=== PATIENT | male | born 1940 | race Two or more races ===

== ENCOUNTER 2024-09-05 18:34 | Inpatient (IN) | payer MEDICARE ==
[~2024-09-05] VITALS: Ht 170.2 cm; Wt 83.9 kg
[2024-09-05] MEDS ORDERED: ALLO100T56 PO (18:56)
[2024-09-05] MEDS ORDERED: INSU100V SUBCUT (18:56)
[2024-09-05] MEDS ORDERED: LEVO75TA PO (18:56)
[2024-09-05] MEDS ORDERED: CLON0.1T PO (18:56)
[2024-09-05] MEDS ORDERED: CEPH500T PO (18:56)
[2024-09-05] MEDS ORDERED: TICA90TA PO (18:56)
[2024-09-05] MEDS ORDERED: FAMO20TA8 PO (18:56)
[2024-09-05] MEDS ORDERED: TRAZ-182 PO (18:56)
[2024-09-05] MEDS ORDERED: CARV3.122 PO (18:56)
[2024-09-05 19:33] LABS: BASOPHILS # (AUTO) 0.1 K/UL (0.0-0.2); BASOPHILS % (AUTO) 0.6 % (0.0-2.0); EOSINOPHILS # (AUTO) 0.1 K/uL (0.0-0.7); EOSINOPHILS % (AUTO) 1.1 % (0.0-7.0); HEMOGLOBIN 10.2 g/dL (12.5-16.3); LYMPHOCYTES # (AUTO) 1.3 K/uL (0.8-4.8); LYMPHOCYTES % (AUTO) 11.2 % (20.5-51.5); MEAN CORPUSCULAR HGB CONC 33 g/dL (32.5-36.3); MEAN CORPUSCULAR VOLUME 85.1 fL (73.0-96.2); MONOCYTES # (AUTO) 0.4 K/uL (0.1-1.30); MONOCYTES % (AUTO) 3.5 % (0.0-11.0); NEUTROPHILS % (AUTO) 83.6 % (38.5-71.5); PLATELET COUNT (AUTO) 296 K/uL (152-348); RED BLOOD CELL COUNT(AUTO) 3.64 MIL/uL (4.06-5.63); RED CELL DISTRIBUTION WIDTH 17.1 % (12.1-16.2); WHITE BLOOD COUNT (AUTO) 11.9 K/uL (3.6-10.2)
[2024-09-05 19:37] LABS: DIFFERENTIAL COMMENT 1
[2024-09-05] MEDS ORDERED: GLUCAGON,HUMAN RECOMBINANT 1 MG VIAL ONE ×2 (19:38→19:58)
[2024-09-05 19:42] LABS: AMMONIA 14 umol/L (11-32)
[2024-09-05 19:46] LABS: ALANINE AMINOTRANSFERASE 29 U/L (16-63); ALBUMIN 3.7 g/dL (3.4-5.0); ALKALINE PHOSPHATASE 124 U/L (50-136); ASPARTATE AMINOTRANSFERASE 19 U/L (15-37); BILIRUBIN,DIRECT 0.1 mg/dL (0.0-0.2); BILIRUBIN,TOTAL 0.3 mg/dL (0.2-1.0); CALCIUM 8.5 mg/dL (8.5-10.1); CARBON DIOXIDE 20 mmol/L (21-32); CHLORIDE 106 mmol/L (98-107); CREATININE 2.4 mg/dL (0.6-1.3); POTASSIUM 3.7 mmol/L (3.5-5.1); SODIUM SERUM 141 mmol/L (136-145); TOTAL PROTEIN, SERUM 7.4 g/dL (6.4-8.2); UREA NITROGEN, BLOOD 61 mg/dL (7-18)
[2024-09-05 19:48] LABS: GLUCOSE 42 mg/dL (74-106)
[2024-09-05] MEDS ORDERED: DEXTROSE 50% 50 ML DISP.SYRIN ONE ×3 (19:48→22:38)
[2024-09-05] MEDS: DEXTROSE 50% 50 ML DISP.SYRIN IV ONE ×2 (19:51→22:54)
[2024-09-05 19:58] LABS: ETHANOL < 3 MG/DL (0-10)
[2024-09-05] MEDS ORDERED: IV DEXTROSE 5%-0.9%NS+20MeqKCL 1,000 ML IV ONE (20:01)
[2024-09-05] MEDS: POTASSIUM CHLORIDE 20 MEQ in IV D5/ 0.9% NACL 1,000 ML IV PRN (20:07)
[2024-09-05] MEDS: GLUCAGON,HUMAN RECOMBINANT 1 MG VIAL SQ STA (23:01)
[2024-09-05] MEDS ORDERED: CEFEPIME HCL 1 G VIAL ONE (23:07)
[2024-09-05] MEDS: CEFEPIME HCL 2 G in IV DEXTROSE 5% 100 ML IV ONE (23:07)
[2024-09-05 23:29] LABS: *BILIRUBIN,URIN NEGATIVE (NEGATIVE); *BLOOD, URINE 3+ (NEGATIVE); *CLARITY,URINE SLIGHTLY CLOUDY (CLEAR); *COLOR,URINE YELLOW (YELLOW); *KETONES,URINE NEGATIVE (NEGATIVE); *PROTEIN,URINE NEGATIVE (NEGATIVE); *UROBILINOGEN,URINE 0.2 E.U./dl (NORMAL); LEUKOCYTE ESTERASE ,URINE 2+ (NEGATIVE); NITRITE, URINE NEGATIVE (NEGATIVE); PH,URINE 5.5 (5.0-8.0); UGLUCOSE 2+ (NEGATIVE)
[2024-09-05 23:39] LABS: RBC,URINE 50-80 /HPF (0-3)
[2024-09-05 23:40] LABS: BACTERIA,URINE FEW /HPF (NONE SEEN); SQUAMOUS EPITHELIAL CELL,UR FEW /HPF (NONE SEEN); WBC,URINE 20-50 /HPF (0-3)
[2024-09-05 23:41] LABS: *AMPHETAMINE, URINE NEGATIVE (NEGATIVE); *BARBITURATE, URINE NEGATIVE (NEGATIVE); *BENZODIAZEPINE, URINE NEGATIVE (NEGATIVE); *CANNABINOID, URINE NEGATIVE (NEGATIVE); *COCCAINE, URINE NEGATIVE (NEGATIVE); *OPIATE, URINE NEGATIVE (NEGATIVE); *PHENCYCLIDINE SCREEN,URINE NEGATIVE (NEGATIVE); FENTANYL, URINE NEGATIVE (NEGATIVE)
[2024-09-05] MEDS: IV NS 1000 ML 1,000 ML IV ONE (23:58)
[2024-09-06] MEDS ORDERED: REMEDY ESSENTIAL ZINC PASTE 113 GM TP PRN (00:15)
[2024-09-06] MEDS ORDERED: ONDANSETRON 4 MG/2 ML VIAL IV PRN (00:15)
[2024-09-06] MEDS ORDERED: MAGNESIUM HYDROXIDE 30 ML LIQUID UDC PO PRN (00:15)
[2024-09-06] MEDS ORDERED: DEXTROSE 50% 50 ML DISP.SYRIN IV PRN ×2 (00:15→12:15)
[2024-09-06 02:30] VITALS: BP 147/62; TEMP 98.5; O2SAT 97
[2024-09-06] MEDS: BLOOD SUGAR DIAGNOSTIC 1 EACH STRIP VI SCH ×2 (03:49→13:56)
[2024-09-06] MEDS: IV D5 1/2 NS 1000 ML 1,000 ML IV PRN (03:51)
[2024-09-06 05:01] VITALS: BP 131/55; TEMP 98.2; O2SAT 97
[2024-09-06] MEDS: LEVOTHYROXINE SODIUM 75 MCG TABLET PO ONE (06:43)
[2024-09-06 07:01] LABS: CALCIUM 8.1 mg/dL (8.5-10.1); CARBON DIOXIDE 16 mmol/L (21-32); CHLORIDE 108 mmol/L (98-107); CREATININE 2.4 mg/dL (0.6-1.3); GLUCOSE 217 mg/dL (74-106); POTASSIUM 4.5 mmol/L (3.5-5.1); SODIUM SERUM 141 mmol/L (136-145); UREA NITROGEN, BLOOD 57 mg/dL (7-18)
[2024-09-06 08:00] VITALS: BP 139/62; TEMP 98.1; O2SAT 97
[2024-09-06] MEDS: ALLOPURINOL 100 MG TABLET PO SCH (08:28)
[2024-09-06] MEDS: CARVEDILOL 3.125 MG TABLET PO SCH (08:28)
[2024-09-06] MEDS: FAMOTIDINE 20 MG TABLET PO SCH (08:28)
[2024-09-06] MEDS ORDERED: CARVEDILOL 3.125 MG TABLET PO SCH (09:00)
[2024-09-06] MEDS ORDERED: LEVOTHYROXINE SODIUM 75 MCG TABLET PO SCH (09:00)
[2024-09-06] MEDS ORDERED: CEFEPIME HCL 1 G in IV DEXTROSE 5% 50 ML IV SCH (09:00)
[2024-09-06] MEDS ORDERED: DAPA10TA PO (10:22)
[2024-09-06] MEDS ORDERED: SIMV-46 PO (11:05)
[2024-09-06] MEDS ORDERED: CHOL-35 PO (11:05)
[2024-09-06 12:00] VITALS: BP 148/69; TEMP 98.1; O2SAT 99
[2024-09-06] MEDS: INSULIN REGULAR, HUMAN 1000 UNIT/10 ML VIAL SQ PRN (13:58)
[2024-09-06 16:00] VITALS: BP 151/62; TEMP 98.4; O2SAT 100
[2024-09-06 18:25] LABS: *CREATININE,URINE 51.2 mg/dL (30-125); *URINE TOTAL PROTEIN RANDOM 77.6 mg/dL (<150/24HR)
[2024-09-06 19:30] VITALS: BP 142/70; TEMP 98.5; O2SAT 98
[2024-09-06] MEDS: INSULIN GLARGINE,HUM 300 UNITS/3 ML CARTRIDGE SQ SCH (21:00)
[2024-09-06] MEDS: SIMVASTATIN 20 MG TABLET PO SCH (21:53)
[2024-09-06] MEDS: TRAZODONE 50 MG TABLET PO SCH (21:53)
[2024-09-06] MEDS ORDERED: CEFEPIME HCL 1 G VIAL ONE (22:15)
[2024-09-06] MEDS: CEFEPIME HCL 1 G in IV DEXTROSE 5% 50 ML IV SCH (22:50)
[2024-09-07 00:49] VITALS: BP 154/81; TEMP 98.1; O2SAT 100
[2024-09-07 06:18] VITALS: BP 138/59; TEMP 97.6; O2SAT 97
[2024-09-07 06:28] LABS: BASOPHILS # (AUTO) 0.1 K/UL (0.0-0.2); BASOPHILS % (AUTO) 0.8 % (0.0-2.0); EOSINOPHILS # (AUTO) 0.2 K/uL (0.0-0.7); EOSINOPHILS % (AUTO) 1.8 % (0.0-7.0); HEMATOCRIT 28.6 % (36.7-47.1); HEMOGLOBIN 9.7 g/dL (12.5-16.3); LYMPHOCYTES # (AUTO) 1.8 K/uL (0.8-4.8); LYMPHOCYTES % (AUTO) 13.9 % (20.5-51.5); MEAN CORPUSCULAR HGB CONC 34 g/dL (32.5-36.3); MEAN CORPUSCULAR VOLUME 85.8 fL (73.0-96.2); MONOCYTES # (AUTO) 0.9 K/uL (0.1-1.30); MONOCYTES % (AUTO) 6.7 % (0.0-11.0); NEUTROPHILS # (AUTO) 9.8 K/uL (1.8-8.9); NEUTROPHILS % (AUTO) 76.8 % (38.5-71.5); PLATELET COUNT (AUTO) 287 K/uL (152-348); RED BLOOD CELL COUNT(AUTO) 3.34 MIL/uL (4.06-5.63); RED CELL DISTRIBUTION WIDTH 17.3 % (12.1-16.2); WHITE BLOOD COUNT (AUTO) 12.8 K/uL (3.6-10.2)
[2024-09-07 06:45] LABS: DIFFERENTIAL COMMENT 1
[2024-09-07 06:50] LABS: ALANINE AMINOTRANSFERASE 29 U/L (16-63); ALBUMIN 3.5 g/dL (3.4-5.0); ALKALINE PHOSPHATASE 117 U/L (50-136); ASPARTATE AMINOTRANSFERASE 23 U/L (15-37); BILIRUBIN,TOTAL 0.3 mg/dL (0.2-1.0); CALCIUM 8.2 mg/dL (8.5-10.1); CARBON DIOXIDE 18 mmol/L (21-32); CHLORIDE 110 mmol/L (98-107); CHOLESTEROL 124 mg/dL (<200); CREATININE 2.1 mg/dL (0.6-1.3); GLUCOSE 57 mg/dL (74-106); HDL CHOLESTEROL 62 mg/dL (40-60); MAGNESIUM 2.8 mg/dL (1.8-2.4); PHOSPHOROUS 3.6 mg/dL (2.5-4.9); POTASSIUM 4.2 mmol/L (3.5-5.1); SODIUM SERUM 137 mmol/L (136-145); TOTAL PROTEIN, SERUM 7.4 g/dL (6.4-8.2); TRIGLYCERIDES 71 MG/DL (30-150); UREA NITROGEN, BLOOD 44 mg/dL (7-18)
[2024-09-07 07:10] LABS: IRON, SERUM 26 ug/dL (50-175)
[2024-09-07 07:13] LABS: CREATINE KINASE, TOTAL 281 U/L (39-308)
[2024-09-07 07:32] VITALS: BP 150/65; TEMP 97.8; O2SAT 100
[2024-09-07] MEDS: DAPAGLIFLOZIN PROPANEDIOL 10 MG TABLET PO SCH (08:26)
[2024-09-07] MEDS: TICAGRELOR 90 MG TABLET PO SCH (08:26)
[2024-09-07] MEDS: CHOLECALCIFEROL 1,000 UNIT TABLET PO SCH (08:26)
[2024-09-07 11:32] VITALS: BP 150/69; TEMP 98.4; O2SAT 97
[2024-09-07] MEDS: ACETAMINOPHEN 325 MG TABLET PO PRN (15:18)
[2024-09-07] MEDS: IV 1/2NS 1000 ML 1,000 ML IV PRN (15:19)
[2024-09-07 15:55] VITALS: BP 105/75; TEMP 97.7; O2SAT 99
[2024-09-07] MEDS ORDERED: glipiZIDE 5 MG TABLET PO SCH (16:30)
[2024-09-07] MEDS: CARVEDILOL 3.125 MG TABLET PO SCH (17:16)
[2024-09-07 19:40] VITALS: BP 130/72; TEMP 97.8; O2SAT 100
[2024-09-07] MEDS: SIMVASTATIN 10 MG TABLET PO SCH (20:21)
[2024-09-08 00:08] VITALS: BP 110/60; TEMP 98.5; O2SAT 98
[2024-09-08 04:25] VITALS: BP 109/69; TEMP 97.9; O2SAT 97
[2024-09-08] MEDS: LEVOTHYROXINE SODIUM 75 MCG TABLET PO SCH (06:36)
[2024-09-08] MEDS: glipiZIDE 5 MG TABLET PO SCH (06:36)
[2024-09-08] MEDS: PANTOPRAZOLE SODIUM 40 MG TABLET.DR PO SCH (06:37)
[2024-09-08 07:01] LABS: BASOPHILS # (AUTO) 0.1 K/UL (0.0-0.2); BASOPHILS % (AUTO) 0.6 % (0.0-2.0); EOSINOPHILS # (AUTO) 0.4 K/uL (0.0-0.7); EOSINOPHILS % (AUTO) 2.8 % (0.0-7.0); HEMATOCRIT 27.1 % (36.7-47.1); HEMOGLOBIN 9.1 g/dL (12.5-16.3); LYMPHOCYTES # (AUTO) 1.3 K/uL (0.8-4.8); LYMPHOCYTES % (AUTO) 9.7 % (20.5-51.5); MEAN CORPUSCULAR HEMOGLOBIN 28.8 uug (23.8-33.4); MEAN CORPUSCULAR HGB CONC 34 g/dL (32.5-36.3); MEAN CORPUSCULAR VOLUME 85.6 fL (73.0-96.2); NEUTROPHILS # (AUTO) 10.9 K/uL (1.8-8.9); NEUTROPHILS % (AUTO) 79.9 % (38.5-71.5); PLATELET COUNT (AUTO) 254 K/uL (152-348); RED BLOOD CELL COUNT(AUTO) 3.17 MIL/uL (4.06-5.63); WHITE BLOOD COUNT (AUTO) 13.7 K/uL (3.6-10.2)
[2024-09-08 07:12] LABS: ALANINE AMINOTRANSFERASE 21 U/L (16-63); ALBUMIN 3.3 g/dL (3.4-5.0); ALKALINE PHOSPHATASE 111 U/L (50-136); ASPARTATE AMINOTRANSFERASE 26 U/L (15-37); BILIRUBIN,TOTAL 0.5 mg/dL (0.2-1.0); CARBON DIOXIDE 18 mmol/L (21-32); CHLORIDE 110 mmol/L (98-107); CREATININE 2.1 mg/dL (0.6-1.3); GLUCOSE 131 mg/dL (74-106); MAGNESIUM 2.6 mg/dL (1.8-2.4); PHOSPHOROUS 2.7 mg/dL (2.5-4.9); POTASSIUM 4.6 mmol/L (3.5-5.1); SODIUM SERUM 141 mmol/L (136-145); TOTAL PROTEIN, SERUM 6.9 g/dL (6.4-8.2); UREA NITROGEN, BLOOD 41 mg/dL (7-18)
[2024-09-08 07:14] LABS: DIFFERENTIAL COMMENT 1
[2024-09-08 07:30] VITALS: BP 90/58; TEMP 98.5; O2SAT 99
[2024-09-08 10:10] LABS: PTH, INTACT 67 pg/mL (15-65)
[2024-09-08 11:38] VITALS: BP 151/69; TEMP 98.8; O2SAT 98
[2024-09-08 15:38] VITALS: BP 149/70; TEMP 98.2; O2SAT 100
[2024-09-08 19:43] VITALS: BP 177/91; TEMP 97.6; O2SAT 99
[2024-09-08] MEDS: MUPIROCIN 2% OINT 22 GM TUBE NS SCH (20:20)
[2024-09-08] MEDS: INSULIN REGULAR, HUMAN 300 UNITS/3 ML VIAL SQ PRN (20:44)
[2024-09-09] VITALS (7 sets, daily range): BP systolic 130–152; BP diastolic 51–76; TEMP 97.7–98.5; O2SAT 98–100
[2024-09-09 06:49] LABS: BASOPHILS # (AUTO) 0.1 K/UL (0.0-0.2); BASOPHILS % (AUTO) 0.7 % (0.0-2.0); EOSINOPHILS # (AUTO) 0.3 K/uL (0.0-0.7); EOSINOPHILS % (AUTO) 2.4 % (0.0-7.0); HEMATOCRIT 26.3 % (36.7-47.1); HEMOGLOBIN 8.9 g/dL (12.5-16.3); LYMPHOCYTES # (AUTO) 1.2 K/uL (0.8-4.8); MEAN CORPUSCULAR HEMOGLOBIN 28.5 uug (23.8-33.4); MEAN CORPUSCULAR HGB CONC 34 g/dL (32.5-36.3); MEAN CORPUSCULAR VOLUME 84.2 fL (73.0-96.2); MONOCYTES # (AUTO) 0.9 K/uL (0.1-1.30); MONOCYTES % (AUTO) 7.7 % (0.0-11.0); NEUTROPHILS # (AUTO) 9.5 K/uL (1.8-8.9); NEUTROPHILS % (AUTO) 79.2 % (38.5-71.5); PLATELET COUNT (AUTO) 256 K/uL (152-348); RED BLOOD CELL COUNT(AUTO) 3.13 MIL/uL (4.06-5.63); RED CELL DISTRIBUTION WIDTH 17.3 % (12.1-16.2)
[2024-09-09 06:57] LABS: DIFFERENTIAL COMMENT 1
[2024-09-09 07:09] LABS: CALCIUM 7.6 mg/dL (8.5-10.1); CARBON DIOXIDE 19 mmol/L (21-32); CHLORIDE 108 mmol/L (98-107); CREATININE 1.8 mg/dL (0.6-1.3); GLUCOSE 81 mg/dL (74-106); MAGNESIUM 2.8 mg/dL (1.8-2.4); PHOSPHOROUS 2.8 mg/dL (2.5-4.9); POTASSIUM 4.1 mmol/L (3.5-5.1); SODIUM SERUM 140 mmol/L (136-145); UREA NITROGEN, BLOOD 34 mg/dL (7-18)
[2024-09-10 04:27] VITALS: BP 147/61; TEMP 98.3; O2SAT 99
[2024-09-10 06:52] LABS: BASOPHILS # (AUTO) 0.1 K/UL (0.0-0.2); BASOPHILS % (AUTO) 0.6 % (0.0-2.0); EOSINOPHILS # (AUTO) 0.3 K/uL (0.0-0.7); EOSINOPHILS % (AUTO) 3.1 % (0.0-7.0); HEMATOCRIT 27.7 % (36.7-47.1); HEMOGLOBIN 9.3 g/dL (12.5-16.3); LYMPHOCYTES # (AUTO) 1.2 K/uL (0.8-4.8); LYMPHOCYTES % (AUTO) 10.9 % (20.5-51.5); MEAN CORPUSCULAR HEMOGLOBIN 28.5 uug (23.8-33.4); MEAN CORPUSCULAR HGB CONC 34 g/dL (32.5-36.3); MEAN CORPUSCULAR VOLUME 84.8 fL (73.0-96.2); MONOCYTES # (AUTO) 0.9 K/uL (0.1-1.30); MONOCYTES % (AUTO) 8.3 % (0.0-11.0); NEUTROPHILS # (AUTO) 8.2 K/uL (1.8-8.9); NEUTROPHILS % (AUTO) 77.1 % (38.5-71.5); PLATELET COUNT (AUTO) 260 K/uL (152-348); RED BLOOD CELL COUNT(AUTO) 3.27 MIL/uL (4.06-5.63); WHITE BLOOD COUNT (AUTO) 10.6 K/uL (3.6-10.2)
[2024-09-10 07:07] LABS: DIFFERENTIAL COMMENT 1
[2024-09-10 07:16] LABS: CARBON DIOXIDE 20 mmol/L (21-32); CHLORIDE 106 mmol/L (98-107); CREATININE 1.8 mg/dL (0.6-1.3); GLUCOSE 104 mg/dL (74-106); NT-PRO BNP 4513 pg/mL (0-125); POTASSIUM 4.3 mmol/L (3.5-5.1); SODIUM SERUM 139 mmol/L (136-145); UREA NITROGEN, BLOOD 31 mg/dL (7-18)
[2024-09-10 07:18] VITALS: BP 135/55; TEMP 97.6; O2SAT 98
[2024-09-10] MEDS ORDERED: CARV3.122 PO (11:09)
[2024-09-10] MEDS ORDERED: MUPI22OI2 NS (11:09)
[2024-09-10] MEDS ORDERED: GLIP5TAB13 PO (11:09)
[2024-09-10 12:00] VITALS: BP 129/42; TEMP 98.3; O2SAT 97
== END 2024-09-10 14:05 | disposition home health service (06) | DRG 637 ==
LOC: ER 18:34 → TELE3 09-06 00:50
PROVIDERS: ADMIT Nurse Practitioner Acute Care; ATTEND Internal Medicine
PROC: 05HF33Z Insertion of Infusion Device into Left Cephalic Vein, Percutaneous Approach (ICD-10-PCS; principal; 2024-09-08)
DX: E11.649 Type 2 diabetes mellitus with hypoglycemia without coma (principal); G92.8 Other toxic encephalopathy; N39.0 Urinary tract infection, site not specified; D68.59 Other primary thrombophilia; E87.20 Acidosis, unspecified; N17.0 Acute kidney failure with tubular necrosis; Z74.09 Other reduced mobility; D50.9 Iron deficiency anemia, unspecified; M15.9 Polyosteoarthritis, unspecified; I25.10 Atherosclerotic heart disease of native coronary artery without angina pectoris; M89.8X9 Other specified disorders of bone, unspecified site; N18.9 Chronic kidney disease, unspecified; E11.22 Type 2 diabetes mellitus with diabetic chronic kidney disease; E03.9 Hypothyroidism, unspecified; E11.65 Type 2 diabetes mellitus with hyperglycemia; E66.9 Obesity, unspecified; I50.9 Heart failure, unspecified; I44.7 Left bundle-branch block, unspecified; M25.511 Pain in right shoulder; Z22.322 Carrier or suspected carrier of Methicillin resistant Staphylococcus aureus; Z79.890 Hormone replacement therapy; Z68.29 Body mass index [BMI] 29.0-29.9, adult; Z79.899 Other long term (current) drug therapy; Z95.5 Presence of coronary angioplasty implant and graft; Z79.4 Long term (current) use of insulin
CPT/HCPCS: 36415; 70450; 71045; 76770; 83550; 83605; 83735; 83970; 84100; 84153; 84155; 84165; 84300; 84443; 84484; 85025; 85610; 85730; 87040; 87086; 93307; 97535-GO-CO; A4663; C1758; G0378; G0480; J0692; J1610; J1815; J3480; J3490; J7040; J7042; J8499